=== PATIENT | female | born 1955 | race Two or more races ===

== ENCOUNTER 2017-05-13 16:50 | Emergency (ER) | payer SELFPAY ==
[~2017-05-13] VITALS: Ht 167.6 cm; Wt 78.0 kg
[2017-05-13] MEDS ORDERED: ONDANSETRON HCL 4MG/2ML VIAL IV ONE (18:45)
[2017-05-13] MEDS ORDERED: KETOROLAC 30MG/ML VIAL IV ONE (18:45)
[2017-05-13] MEDS ORDERED: SODIUM CHLORIDE 0.9% 1,000 ML IV ONE (18:45)
[2017-05-13 19:04] LABS: BASOPHILS % 0.7 % (0.0-2.0); EOSINOPHILS % 0.1 % (0.0-5.0); HEMATOCRIT. 39.1 % (36.0-48.0); HEMOGLOBIN. 13.2 g/dL (12.0-16.0); LYMPHOCYTES % 8.9 % (20.0-50.0); MEAN CORPUSCULAR HEMOGLOBIN 29.6 pg (28.0-32.0); MEAN CORPUSCULAR VOLUME 87.3 fL (81.0-99.0); MEAN PLATELET VOLUME 9.1 fl (7.4-10.4); NEUTROPHILS % 83.3 % (40.0-76.0); PLATELET 212 x1000/uL (130-400); RED BLOOD CELL COUNT 4.47 mill/uL (4.2-5.4); RED CELL DISTRIBUTION WIDTH 14.4 % (11.6-14.6)
[2017-05-13 19:13] LABS: CARBON DIOXIDE 28 mEq/L (21-32); CHLORIDE 101 mEq/L (98-107)
[2017-05-13 21:30] VITALS: BP 121/69
== END 2017-05-13 21:38 | disposition home or self-care (01) ==
LOC: ER 19:19
DX: J02.0 Streptococcal pharyngitis (principal)
CPT/HCPCS: 36415; 71010; 80048; 83605; 85025; 87430; 96361; 96374; 96375; 99285; J1885; J2405; J7030; Z7610